=== PATIENT | female | born 1990 | race Hispanic/Latino ===

== ENCOUNTER 2020-10-06 16:15 | Observation (INO) | payer MEDICAID ==
[2020-10-06] MEDS ORDERED: MORPHINE 2 MG/1 ML INJ IM ONE (18:26)
[2020-10-06] MEDS ORDERED: LACTATED RINGERS 1000 ML IV SOLN IV SCH (18:30)
[2020-10-06] MEDS ORDERED: hydrOXYzine HCL 100 MG/2 ML INJ IM ONE (18:30)
[2020-10-06] MEDS ORDERED: LACTATED RINGERS 1,000 ML IV SCH (18:45)
[2020-10-06] MEDS ORDERED: BUTORPHANOL 2 MG/1 ML INJ IV PRN (20:19)
[2020-10-06 20:40] LABS: Hematocrit 35.3 % (30.3-42.9); Hemoglobin 11.7 gm/dl (10.1-14.3); Mean Corpuscular HGB Conc 33 % (30-34); Mean Corpuscular Volume 87 fl (79-97); Platelet Count 138 K/mm3 (140-440); Red Blood Count 4.06 M/mm3 (3.65-5.03); Red Cell Distribution Width 14.7 % (13.2-15.2)
[2020-10-06] MEDS ORDERED: fentaNYL 100 MCG/2 ML INJ IV ONE (21:18)
[2020-10-07 04:48] VITALS: BP 103/57
[2020-10-07] MEDS ORDERED: PRENATAL VIT27-FE FUMARATE-FOLIC ACID VIT TAB PO SCH (10:00)
== END 2020-10-07 08:41 | disposition home or self-care (01) ==
LOC: APU 16:15 → TRG 16:15 → LD 18:44
PROVIDERS: ADMIT Obstetrics & Gynecology; ATTEND Obstetrics & Gynecology
DX: O62.9 Abnormality of forces of labor, unspecified (principal); Z3A.38 38 weeks gestation of pregnancy; Z98.890 Other specified postprocedural states; Z87.891 Personal history of nicotine dependence
CPT/HCPCS: 36415; 85027; 86592; 86850; 86900; 86901; 96372; G0378; J2270; J3410; J7120